=== PATIENT | male | born 1965 | race Caucasian/White ===

== ENCOUNTER 2016-12-21 09:11 | Emergency (ER) | payer OTHER ==
--- NOTE | 2016-12-21 09:30 | UCPHY ---
H & P Patient Type: Established HPI/ROS: HPI CHIEF COMPLAINT: Sore throat, cough, nausea, chills, "I think I have the flu" HISTORY OF PRESENT ILLNESS: This patient 51-year-old male no significant medical history, presents to the urgent care feeling nauseous, he tells me over the past 3 days he has had a cough generalized chills, fatigue and thinks he may have the flu. States that for the last 2 days he has had a nonproductive cough upper respiratory tract infection type symptoms, however today he developed nausea chills 100.4 T-max at home. He has persistent nausea could not keep any medications down so decided to come to the urgent care. He did call his primary care doctor but was unable to get an appointment till 4 o' clock in the afternoon. This patient denies any chest pain, shortness of breath , abdominal pain, diarrhea. Past Medical History: Denies significant medical history except for GERD Past Surgical History: Right hip resurfacing, left shoulder surgery Social History: denies daily use drugs alcohol tobacco products Family History: Noncontributory ROS REVIEW OF SYSTEMS: A comprehensive 10 point review of systems is otherwise negative aside from elements mentioned in the history of present illness. Exam Constitutional appears well nontoxic,triage nursing summary reviewed, vital signs reviewed, awake/alert. No meningeal signs. Eyes normal conjunctivae and sclera, EOMI, PERRLA. HENT bilateral TMs are normal, clear, posterior pharynx normal, no redness, uvula midline, no swelling, normal inspection, atraumatic, moist mucus membranes , no epistaxis, neck supple/ no meningismus, no raccoon eyes. Respiratory no appreciable abnormal lung sounds on exam, clear to auscultation bilaterally, normal breath sounds, no respiratory distress, no wheezing. Cardiovascular rate normal, regular rhythm, no murmur, no edema, distal pulses normal. Gastrointestinal soft, non-tender, no rebound, no guarding, normal bowel sounds, no distension, no pulsatile mass. Genitourinary no CVA tenderness. Musculoskeletal no midline vertebral tenderness, full range of motion, no calf swelling, no tenderness of extremities, no meningismus, good pulses, neurovascularly intact. Skin pink, warm, & dry, no rash, skin atraumatic. Neurologic awake, alert and oriented x 3, AAOx3, moves all 4 extremities equally, motor intact, sensory intact, CN II-XII intact, normal cerebellar, normal vision, normal speech. Psychiatric normal mood/affect. Heme/Lymph/Immune no lymphadenopathy. Differential Diagnosis: Includes but is not limited to in a particular order, viral syndrome, upper respiratory tract infection, viral pneumonia, bacterial pneumonia, influenza Medical Decision Making: This patient had an influenza test done however he is afebrile here nontoxic appearing. He is complaining of nausea without any Active vomiting, admits to having upper respiratory tract infection type symptoms over the past 3 days, chills and thinks he may have the flu. He will be given 4 mg of ODT Zofran here 1 g of Tylenol will test a rapid influenza. Re-evaluation: 1000: Re-examination at this time this patient appears well nontoxic no acute distress noted to not be febrile and not hypoxic. His influenza a test came back positive. I will start him on Tamiflu, Zofran and ibuprofen. He understands to drink lots of fluids stay well-hydrated return to the urgent care or emergency room if develops worsening symptoms includes high fever, vomiting cannot keep his medications down chest pain shortness of breath or any questions or concerns. Source: Patient - Medical/Surgical History Hx Asthma: No Hx Chronic Respiratory Disease: No Hx Diabetes: No Hx Cardiac Disease: No Hx Renal Disease: No Hx Cirrhosis: No Hx Alcoholism: No Hx HIV/AIDS: No Hx Splenectomy or Spleen Trauma: No Other PMH: ORTHO - Family History Significant Family History: No pertinent family hx - Social History Smoking Status: Never smoked Allergies/Adverse Reactions: No Allergies [NKDA] Allergy (Verified 06/06/10 08:26) Home Medications: Medication Instructions Recorded DULoxetine [Cymbalta] 05/02/11 Fish Oil, Coq10,Vits 05/02/11 Prevacid 05/02/11 Ibuprofen [Motrin (*)] 800 mg PO Q6-8PRN #7 tab 12/21/16 Ondansetron HCl [Zofran] 4 mg PO Q4-6PRN PRN #10 tablet 12/21/16 Oseltamivir Phosphate [Tamiflu 75 75 mg PO BID #10 cap 12/21/16 mg (*)] Medical Decision Making - Data Points Laboratory Results: 12/21/16 09:30 Influenza Typ A,B (DFA) POSITIVE FOR FLU A H (NEGATIVE) Medications Given: Discontinued Medications Ondansetron HCl (Zofran Odt) 4 mg PO EDNOW ONE Stop: 12/21/16 09:39 Last Admin: 12/21/16 10:11 Dose: 4 mg Departure - Departure Disposition: Home, Routine, Self-Care Clinical Impression: Influenza A Condition: Good Instructions: Influenza (ED) Additional Instructions: 1. please drink lots of fluids stay well-hydrated 2.Keep your fever down Tylenol Motrin. 3. Return to the urgent care or emergency room if develops very high fever, persistent vomiting I do not feel well. 4. return emergency room if he developed severe shortness of breath, severe high fever and cough with productive sputum Referrals: Marcelino Maynard MD [Primary Care Provider] - As per Instructions Prescriptions: Ibuprofen [Motrin (*)] 800 mg PO Q6-8PRN #7 tab Ondansetron HCl [Zofran] 4 mg PO Q4-6PRN PRN #10 tablet PRN Reason: Nausea/Vomiting, Use 1st Oseltamivir Phosphate [Tamiflu 75 mg (*)] 75 mg PO BID #10 cap - PQRS PQRS Measurement: n/a
[2016-12-21] MEDS ORDERED: ONDANSETRON DISINTEGRATING 4 MG TAB PO ONE (09:38)
[2016-12-21] MEDS ORDERED: ACETAMINOPHEN 325 MG TAB PO ONE (09:38)
[2016-12-21 10:56] VITALS: RESP 16; O2SAT 97
[2016-12-21 11:09] VITALS: BP 115/74; PULSE 83; TEMP 98.6
== END 2016-12-21 11:07 | disposition home or self-care (01) ==
LOC: CED 09:11
DX: J10.1 Influenza due to other identified influenza virus with other respiratory manifestations (principal)
CPT/HCPCS: 87400-PO; 99214-PO; G0463-PO

== ENCOUNTER → 2017-06-17 | Outpatient (CLI) | payer OTHER | LOC: FCPNEURO 21:00 | PROVIDERS: ATTEND Internal Medicine Sleep Medicine | DX: G47.33 Obstructive sleep apnea (adult) (pediatric) (principal) ==

== ENCOUNTER → 2018-01-03 | Outpatient (CLI) | payer OTHER | LOC: FIMAGING 12:55 | PROVIDERS: ATTEND Physician Assistant | DX: M25.551 Pain in right hip (principal) ==

== ENCOUNTER → 2018-03-05 | Outpatient (CLI) | payer OTHER | LOC: FIMAGING 06:39 | PROVIDERS: ATTEND Physical Medicine & Rehabilitation | DX: M53.82 Other specified dorsopathies, cervical region (principal); M48.02 Spinal stenosis, cervical region; M50.322 Other cervical disc degeneration at C5-C6 level ==

== ENCOUNTER → 2018-10-31 | Outpatient (CLI) | payer OTHER ==
[~2018-10-31] MED LIST: GADOBUTROL 10 ML VIAL IVP ONE
== END ==
LOC: FIMAGING 13:06
PROVIDERS: ATTEND Physical Medicine & Rehabilitation
DX: M54.2 Cervicalgia (principal); M48.02 Spinal stenosis, cervical region
CPT/HCPCS: A9585